=== PATIENT | female | born 1970 ===

== ENCOUNTER 2017-01-19 20:09 | Emergency (ER) | payer OTHER ==
[2017-01-19 21:45] VITALS: BP 134/89; PULSE 87; RESP 18; TEMP 98.1; O2SAT 98
[2017-01-19 22:12] LABS: RBC URINE 1 /hpf (0-3); URINE BILIRUBIN NEGATIVE (NEGATIVE); URINE BLOOD NEGATIVE (NEGATIVE); URINE COLOR Yellow (YELLOW); URINE GLUCOSE (UA) NORMAL (Normal); URINE KETONE NEGATIVE (NEGATIVE); URINE LEUKOCYTE ESTERASE NEG Leu/uL (Negative); URINE PROTEIN NEGATIVE (NEGATIVE); URINE UROBILINOGEN NORMAL mg/dL (0.2-1.0); WBC URINE 1 /hpf (0-5)
--- NOTE | 2017-01-19 23:43 | C.PDOC ---
History Of Present Illness 46 year old patient presents to the ED complaining of intermittent suprapubic and left lower quadrant pain for the past week. Patient reports the pain is radiating to her vagina and rectum. Patient has a history of fibroids and is not sure if the pain is related to it. Patient denies constipation, urinary symptoms, fever, vomiting, or diarrhea. Time Seen by Provider: 01/19/17 21:49 Chief Complaint (Nursing): Abdominal Pain History Per: Patient History/Exam Limitations: no limitations Onset/Duration Of Symptoms: Other (1 week) Current Symptoms Are (Timing): Still Present Context: Other Severity: Mild Pain Scale Rating Of: 3 Location Of Pain/Discomfort: LLQ, Suprapubic Radiation Of Pain To:: Other (vagina and rectum) Quality Of Discomfort: "Pain" Exacerbating Factors: None Alleviating Factors: None Last Bowel Movement: Today Recent travel outside of the [place]: No Abnormal Vaginal Bleeding: No Past Medical History Reviewed: Historical Data, Nursing Documentation, Vital Signs Vital Signs: Last Vital Signs Temp 98.1 F 01/19/17 21:41 Pulse 87 01/19/17 21:41 Resp 18 01/19/17 21:41 BP 134/89 01/19/17 21:41 Pulse Ox 98 01/20/17 00:32 Family History: States: Unknown Family Hx - Social History Hx Alcohol Use: No Hx Substance Use: No - Immunization History Hx Tetanus Toxoid Vaccination: Yes Hx Influenza Vaccination: Yes Hx Pneumococcal Vaccination: No Review Of Systems Except As Marked, All Systems Reviewed And Found Negative. Constitutional: Negative for: Fever Gastrointestinal: Positive for: Abdominal Pain (suprapubic and LLQ). Negative for: Vomiting, Diarrhea, Constipation Genitourinary: Positive for: Other (vaginal and rectal pain). Negative for: Dysuria Physical Exam - Physical Exam Appears: Non-toxic, No Acute Distress Skin: Warm, Dry Eye(s): bilateral: Normal Inspection, PERRL, EOMI Gastrointestinal/Abdominal: Soft, Tenderness ((+)mild tenderness to LLQ (-) tenderness to RLQ), No Guarding, No Rebound Back: Normal Inspection, No CVA Tenderness, No Vertebral Tenderness Pelvic: No Cervical Motion Tenderness, Enlarged Uterus, No Other (vaginal discharge or bleeding) Extremity: Normal ROM Neurological/Psych: Oriented x3, Normal Speech, Normal Cognition Gait: Steady ED Course And Treatment O2 Sat by Pulse Oximetry: 98 (RA) Pulse Ox Interpretation: Normal - Other Rad abdomen x-ray X-Ray: Interpreted by Me, Viewed By Me Interpretation: no acute findings, mod stools Progress Note: Abdomen x-ray taken. Urinalysis ordered. Patient's questions were answered. Patient is requesting discharge. She was instructed to follow up with PMD. Return if symptoms worsen. Disposition - Disposition Referrals: Jacob Reaves MD [Family Provider] - Disposition: HOME/ ROUTINE Disposition Time: 23:42 Condition: GOOD Additional Instructions: Please follow up with PMD Return to ER if worse Prescriptions: Polyethylene Glycol 3350 [Miralax] 17 gm PO DAILY #1 bottle Ibuprofen [Motrin] 600 mg PO Q6H #30 tab Instructions: Constipation (ED), Acute Abdominal Pain (ED) - Clinical Impression Clinical Impression: Constipation, Abdominal pain - PA / LOGISTICS LEAD / Resident Statement MD/DO has reviewed & agrees with the documentation as recorded. - Scribe Statement The provider has reviewed the documentation as recorded by the Scribe Marisa Churchill All medical record entries made by the Scribe were at my direction and personally dictated by me. I have reviewed the chart and agree that the record accurately reflects my personal performance of the history, physical exam, medical decision making, and the department course for this patient. I have also personally directed, reviewed, and agree with the discharge instructions and disposition.
--- NOTE | 2017-01-19 23:45 | C.PDOC ---
Time Seen by Provider: 01/19/17 21:49 Chief Complaint (Nursing): Abdominal Pain Past Medical History Vital Signs: Last Vital Signs Temp 98.1 F 01/19/17 21:41 Pulse 87 01/19/17 21:41 Resp 18 01/19/17 21:41 BP 134/89 01/19/17 21:41 Pulse Ox 98 01/19/17 21:41 - Social History Hx Alcohol Use: No Hx Substance Use: No - Immunization History Hx Tetanus Toxoid Vaccination: Yes Hx Influenza Vaccination: Yes Hx Pneumococcal Vaccination: No ED Course And Treatment O2 Sat by Pulse Oximetry: 98 Disposition Counseled Patient/Family Regarding: Diagnosis, Need For Followup, Rx Given - Disposition Referrals: Jacob Reaves MD [Family Provider] - Disposition: HOME/ ROUTINE Disposition Time: 23:42 Condition: STABLE Additional Instructions: Please follow up with PMD Return to ER if worse Prescriptions: Polyethylene Glycol 3350 [Miralax] 17 gm PO DAILY #1 bottle Ibuprofen [Motrin] 600 mg PO Q6H #30 tab Instructions: Acute Abdominal Pain (ED), Constipation (ED) - Clinical Impression Clinical Impression: Constipation, Abdominal pain
--- NOTE | 2017-01-20 08:47 | RAD ---
HISTORY: abdominal pain COMPARISON: No prior. FINDINGS: BOWEL: Moderate fecal retention in the colon. Few distended loops of bowel in the lower abdomen. BONES: Normal. OTHER FINDINGS: None. IMPRESSION: Moderate fecal retention in the colon. Few distended loops of bowel in the lower abdomen.
== END 2017-01-19 23:49 | disposition home or self-care (01) ==
LOC: C.ER 20:09
DX: K59.00 Constipation, unspecified (principal)

== ENCOUNTER 2018-08-25 07:11 | Emergency (ER) | payer OTHER ==
[2018-08-25 07:31] VITALS: RESP 18; O2SAT 100
[2018-08-25] MEDS ORDERED: Naproxen 550 mg Tab PO STA (08:12)
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
[2018-08-25] MEDS ORDERED: Naproxen 550 mg Tab PO ONE (08:32)
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
[2018-08-25 09:08] VITALS: BP 160/79; PULSE 78; TEMP 98
== END 2018-08-25 09:38 | disposition home or self-care (01) ==
LOC: C.ER 07:11
DX: S20.212A Contusion of left front wall of thorax, initial encounter (principal); V43.02XA Car driver injured in collision with other type car in nontraffic accident, initial encounter